=== PATIENT | male | born 1980 | race Caucasian/White ===

== ENCOUNTER 2023-10-30 08:45 | Outpatient (AMB) | payer OTHER, SELFPAY ==
[2023-10-30 09:18] VITALS: BP 112/70; PULSE 91; TEMP 36.3; O2SAT 96; BMI 25.9
--- NOTE | 2023-10-30 09:18 | MHC.OFFWIV ---
Intake Vital Signs 10/30/23 09:18 Height 5 ft 11 in Weight 186 lb BMI 25.9 BP 112/70 Blood Pressure Location Lt brachial Position Sitting Pulse 91 Pulse Source Pulse Oximeter Temp 97.3 F Temp Source Temporal Artery Scan Pulse Oximetry (%) 96 Oxygen Delivery Method Room Air Intake Visit Reasons: [employer] Dizzy, head cold, headaches Intake Note: pt is here today for dizzy head cold headaches started yesterday Patient Tobacco Use Status: Never used Tobacco Allergies No Known Allergies Allergy (Verified 10/30/23 09:22) Do you need a note to return to daycare/school/sports/work: No HPI HPI Comments History of Present Illness Details 42 y/o male patient who presents to walk in clinic with c/o URI symptoms. Pt c/o runny nose, sneezing, itchy dry eyes and sore-throat. Pt has a new baby at home, Six months and worried he might transmit the infection to her. Denies fevers, chills, nausea or vomiting. PFSH Social History Patient Tobacco Use Status: Never used Tobacco Physical Exam Vital Signs: Last Vital Signs Temp 97.3 F 10/30/23 09:18 Pulse 91 10/30/23 09:18 BP 112/70 10/30/23 09:18 Pulse Ox 96 10/30/23 09:18 Oxygen Delivery Method Room Air 10/30/23 09:18 BMI result Body Mass Index 25.9 Const General: comfortable and no acute distress Orientation/consciousness: patient oriented x3 HEENT Head: Yes normocephalic Ears: external ears normal and TM abnormal bulging and with fluid behind the TM bilateral; not perforated General nose exam: Abnormal mucous membranes and turbinates present boggy and erythematous Face and sinus: Yes sinuses nontender Mouth: moist mucous membranes Throat: Yes posterior oropharynx normal Resp Effort & Inspection: normal respiratory effort and able to speak in complete sentences Auscultation: clear to auscultation bilaterally, no crackles, no rales, no rhonchi and no wheezes Cardio Rate: regular rate Rhythm: regular rhythm Neuro General: patient oriented x3, gait normal and moves all extremities Psych Speech and movement: Normal speech and movement present Assessment & Plan Assessment & Plan (1) Upper respiratory infection: Code(s): J06.9 - Acute upper respiratory infection, unspecified Qualifiers: URI type: unspecified viral URI Qualified Code(s): J06.9 - Acute upper respiratory infection, unspecified Plan: - Probably Seasonal allergies - Prescribed Claritin and Flonase - RTC if not better. - Ordered COVID test per PT request. Orders: Orders SARS-CoV2/FLU/RSV Today J06.9 - Acute upper respiratory infection, unspecified Medications: New cetirizine (Zyrtec) TAKE DIRECTED 10 mg PO DAILY PRN 90 tabs 0RF allergy symptoms J06.9 - Acute upper respiratory infection, unspecified fluticasone furoate 27.5 mcg/actuation (Flonase Sensimist) into each nostril 1 spray intranasal BID 9.1 mL 0RF J06.9 - Acute upper respiratory infection, unspecified Coding Level of Care Code New Pt Level 3 (48108) Diagnoses Viral upper respiratory tract infection J06.9 URI type: unspecified viral URI Time Spent (min) 15
== END 2023-10-30 09:52 | disposition home or self-care (01) ==
PROVIDERS: PCP Internal Medicine; Visit Provider Nurse Practitioner Family
DX: J06.9 Acute upper respiratory infection, unspecified (principal)
CPT/HCPCS: 99203

== ENCOUNTER 2023-10-30 09:45 | Outpatient (REF) | payer OTHER, SELFPAY ==
[2023-10-30 11:06] LABS: Influenza A PCR NEGATIVE (Negative); Influenza B PCR NEGATIVE (Negative); Resp Syncy Virus RNA Qual PCR NEGATIVE (Negative); SARS COV2 PCR INHOUSE NEGATIVE (Negative)
== END 2023-10-30 09:46 | disposition home or self-care (01) ==
LOC: HO.LAB 09:45
PROVIDERS: Visit Provider Nurse Practitioner Family
DX: J06.9 Acute upper respiratory infection, unspecified (principal)
CPT/HCPCS: 0241U